=== PATIENT | male | born 1960 | race Two or more races ===

== ENCOUNTER 2021-10-05 18:51 | Emergency (ER) | payer SELFPAY ==
[~2021-10-05] VITALS: Ht 167.6 cm; Wt 73.0 kg
[2021-10-05 18:55] VITALS: BP 160/80
[2021-10-05] MEDS ORDERED: MAGNESIUM/ALUMINUM HYDROXIDE/SIMETHICONE 30ML UDC PO ONE (19:15)
[2021-10-05 20:51] LABS: BASOPHILS % 0.4 % (0.0-2.0); EOSINOPHILS % 0.8 % (0.0-5.0); HEMATOCRIT. 39.6 % (42.0-52.0); HEMOGLOBIN. 12.9 g/dL (14.0-18.0); LYMPHOCYTES % 26.8 % (20.0-50.0); MEAN CORPUSCULAR HEMOGLOBIN 27.8 pg (28.0-32.0); MEAN PLATELET VOLUME 8.2 fl (7.4-10.4); MONOCYTES % 9.8 % (2.0-8.0); NEUTROPHILS % 62.2 % (40.0-76.0); PLATELET 273 x1000/uL (130-400); RED BLOOD CELL COUNT 4.66 mill/uL (4.7-6.1); RED CELL DISTRIBUTION WIDTH 16.6 % (11.6-14.6)
[2021-10-05 20:59] LABS: CHLORIDE 104 mEq/L (98-107)
[2021-10-05 21:08] LABS: ETHANOL BLOOD < 10 mg/dL
== END 2021-10-05 23:07 | disposition home or self-care (01) ==
LOC: ER 18:51
DX: R07.89 Other chest pain (principal); R03.0 Elevated blood-pressure reading, without diagnosis of hypertension; R00.0 Tachycardia, unspecified
CPT/HCPCS: 36415; 71045; 80053; 80320; 84484; 85025; 93005; 99285; G0480

== ENCOUNTER 2024-04-17 19:26 | Inpatient (IN) | payer MEDICAID ==
[~2024-04-17] VITALS: Ht 165.1 cm; Wt 79.9 kg
[2024-04-17 19:46] VITALS: O2SAT 95
[2024-04-17 20:29] LABS: CLARITY URINE CLEAR (CLEAR); COLOR URINE YELLOW (YELLOW); GLUCOSE URINE NEGATIVE (NEGATIVE); KETONES URINE 1+ (NEGATIVE); LEUKOCYTE ESTERASE URINE 2+ (NEGATIVE); NITRITE URINE NEGATIVE (NEGATIVE); OCCULT BLOOD URINE NEGATIVE (NEGATIVE); PROTEIN URINE TRACE (NEGATIVE); SPECIFIC GRAVITY URINE 1.022 (1.005-1.030); UROBILINOGEN URINE 0.2 E.U./dL (0.2-1.0)
[2024-04-17 20:43] LABS: BACTERIA URINE TRACE; RBC URINE NONE SEEN /hpf (0-2); SQUAMOUS EPITHELIAL CELL URINE FEW /lpf (RARE/1+)
[2024-04-17 21:25] LABS: BASOPHILS % 0.7 % (0.0-2.0); EOSINOPHILS % 0.4 % (0.0-5.0); HEMATOCRIT. 40.1 % (42.0-52.0); HEMOGLOBIN. 12.9 g/dL (14.0-18.0); LYMPHOCYTES % 23.9 % (20.0-50.0); MEAN CORPUSCULAR HEMOGLOBIN 27.6 pg (28.0-32.0); MEAN CORPUSCULAR HGB CONC 32.2 g/dL (31.0-37.0); MEAN CORPUSCULAR VOLUME 85.8 fL (80.0-94.0); MONOCYTES % 10.1 % (2.0-8.0); NEUTROPHILS % 64.9 % (40.0-76.0); PLATELET 254 x1000/uL (130-400); RED BLOOD CELL COUNT 4.67 mill/uL (4.7-6.1); RED CELL DISTRIBUTION WIDTH 18.4 % (11.6-14.6); WHITE BLOOD COUNT 6.9 x1000/uL (4.5-11.0)
[2024-04-17 21:28] LABS: DIFFERENTIAL COMMENT 1
[2024-04-17 21:34] LABS: CHLORIDE 107 mEq/L (98-107); SODIUM 143 mEq/L (136-145)
[2024-04-17 21:35] LABS: CARBON DIOXIDE 25 mEq/L (21-32)
[2024-04-17 21:37] LABS: PROTHROMBIN TIME 10.9 sec (9.6-11.0)
[2024-04-17 21:40] LABS: CREATININE 1.1 mg/dL (0.6-1.3); GLUCOSE 114 mg/dL (70-105); TROPONIN I HIGH SENSITIVITY 21 ng/L (3.0-53); UREA NITROGEN BLOOD 9 mg/dL (9-23)
[2024-04-17 23:20] LABS: TROPONIN I HIGH SENSITIVITY 21 ng/L (3.0-53)
[2024-04-18] MEDS ORDERED: DIPHENHYDRAMINE 50MG/ML VIAL IV PRN (01:15)
[2024-04-18] MEDS ORDERED: GUAIFENESIN 200MG/10ML SUGAR FREE UDC PO PRN (01:15)
[2024-04-18] MEDS ORDERED: ACETAMINOPHEN 325MG TABLET PO PRN (01:15)
[2024-04-18] MEDS ORDERED: ONDANSETRON HCL 4MG/2ML INJ IV PRN (01:15)
[2024-04-18] MEDS ORDERED: ZOLPIDEM TARTRATE 5MG TABLET PO PRN (01:15)
[2024-04-18] MEDS ORDERED: HYDRALAZINE 20MG/ML VIAL IV PRN (01:15)
[2024-04-18] MEDS ORDERED: MAGNESIUM/ALUMINUM HYDROXIDE/SIMETHICONE 30ML UDC PO PRN (01:15)
[2024-04-18 02:44] VITALS: BP 153/98; PULSE 89; RESP 19; TEMP 36.2
[2024-04-18 04:00] VITALS: BP 170/96; PULSE 92; RESP 19; TEMP 36.6; O2SAT 100
[2024-04-18] MEDS: CLONIDINE 0.1MG TABLET PO PRN (05:04)
[2024-04-18] MEDS: SODIUM CHLORIDE 0.9% 3ML FLUSH IVF SCH (05:06)
[2024-04-18] MEDS ORDERED: PNEUMOCOCCAL 20-VAL CONJ-DIP CRM 0.5ML IM ONE (06:30)
[2024-04-18] MEDS ORDERED: INFLUENZA VACCINE 05/PF 0.5 ML SYRINGE IM ONE (06:30)
[2024-04-18] MEDS: ACETAMINOPHEN 325MG TABLET PO PRN (07:24)
[2024-04-18 07:57] LABS: TROPONIN I HIGH SENSITIVITY 19 ng/L (3.0-53)
[2024-04-18 08:00] VITALS: BP 130/80; PULSE 117; RESP 18; TEMP 36.3; O2SAT 98
[2024-04-18 08:12] LABS: HEPATITIS B SURFACE ANTIGEN NEGATIVE (Negative)
[2024-04-18 08:33] LABS: HEPATITIS C AB NON REACTIVE (Neg) (Negative)
[2024-04-18] MEDS: AMLODIPINE 10MG TABLET PO SCH (09:03)
[2024-04-18] MEDS: FUROSEMIDE 40MG/4ML VIAL IVP SCH (09:03)
[2024-04-18] MEDS: QUETIAPINE FUMARATE 50MG TABLET PO SCH (09:04)
[2024-04-18] MEDS: LISINOPRIL 5MG TABLET PO SCH (09:07)
[2024-04-18] MEDS: HYDROXYZINE 25MG TABLET PO PRN (11:37)
[2024-04-18] MEDS: LEVOFLOXACIN 250MG TABLET PO SCH (11:38)
[2024-04-18 12:00] VITALS: BP 123/69; PULSE 120; RESP 18; TEMP 36.3; O2SAT 95
[2024-04-18] MEDS ORDERED: SODIUM CHLORIDE 0.9% 1,000 ML IV SCH (12:45)
[2024-04-18] MEDS ORDERED: TRAZ-251 PO (13:47)
[2024-04-18] MEDS ORDERED: LORA-250 PO (13:47)
[2024-04-18] MEDS ORDERED: ONDA-239 PO (13:47)
[2024-04-18] MEDS ORDERED: QUET50TA23 PO (13:47)
[2024-04-18] MEDS ORDERED: AMLO10TA80 PO (13:47)
[2024-04-18] MEDS ORDERED: CLON0.1T PO (13:47)
[2024-04-18] MEDS ORDERED: LISI-186 PO (13:47)
[2024-04-18] MEDS ORDERED: GABA-1180 PO (13:47)
[2024-04-18] MEDS ORDERED: VARE0.5T6 PO (13:47)
[2024-04-18] MEDS ORDERED: CYCL10TA21 PO (13:47)
[2024-04-18] MEDS ORDERED: HYDR-3735 PO (13:47)
[2024-04-18 15:02] LABS: *AMPHETAMINES SCREEN URINE PRESUMPTIVE POSITIVE (NEGATIVE); *BARBITURATES SCREEN URINE NEGATIVE (NEGATIVE); *BENZODIAZEPINES SCREEN URINE NEGATIVE (NEGATIVE); *COCAINE SCREEN URINE NEGATIVE (NEGATIVE); CANNABINOID URINE SCREEN NEGATIVE (NEGATIVE); ECSTASY MDMA SCREEN URINE NEGATIVE (NEGATIVE); METHADONE URINE SCREEN NEGATIVE (NEGATIVE); OPIATES URINE SCREEN NEGATIVE (NEGATIVE); PHENCYCLIDINE URINE SCREEN NEGATIVE (NEGATIVE)
[2024-04-18 16:00] VITALS: BP 111/75; PULSE 121; RESP 20; TEMP 36.1; O2SAT 99
[2024-04-18 16:19] LABS: TROPONIN I HIGH SENSITIVITY 18 ng/L (3.0-53)
[2024-04-18] MEDS: DIAZEPAM 5 MG TABLET PO NR (17:12)
== END 2024-04-18 18:18 | disposition home or self-care (01) | DRG 194 ==
LOC: ER 19:26 → 6WST 23:23 → EDBEDREQ 23:35
PROVIDERS: ADMIT Internal Medicine; ATTEND Internal Medicine
DX: I11.0 Hypertensive heart disease with heart failure (principal); K74.60 Unspecified cirrhosis of liver; D64.9 Anemia, unspecified; F15.10 Other stimulant abuse, uncomplicated; F17.210 Nicotine dependence, cigarettes, uncomplicated; I50.43 Acute on chronic combined systolic (congestive) and diastolic (congestive) heart failure; F10.10 Alcohol abuse, uncomplicated; I25.119 Atherosclerotic heart disease of native coronary artery with unspecified angina pectoris; Z88.0 Allergy status to penicillin
CPT/HCPCS: 36415; 80048; 80305; 81003; 83880; 84484; 85025; 86705; 87340; 93005; 99285; J1940